=== PATIENT | female | born 1975 | race Caucasian/White ===

== ENCOUNTER → 2022-09-01 13:38 | Outpatient (CLI) | payer BC, SELFPAY ==
--- NOTE | ~2022-09-01 | US_ITS ---
Pelvic ultrasound. Clinical History: Abnormal bleeding Technique: Realtime transabdominal and transvaginal scanning of the pelvis was performed. Color flow Doppler and Doppler spectral analysis were performed. Findings: The uterus is anteverted. The endometrial stripe has a thickness of 11 mm. No focal mass i s identified. The right ovary measures 2.6 x 3.4 x 2.0 cm. No significant right ovarian or adnexal mass is seen. The left ovary measures 3.6 x 2.2 x 2.3 cm. No significant left ovarian or adnexal mass is seen. Vascular flow present in both ovaries on Doppler spectral analysis. There is no evidence of free fluid in the cul de sac. Impression: Unremarkable pelvic ultrasound. No evidence for torsion. Reviewed, dictated and finalized at [facility]. ENDOSCOPY Impression: Unremarkable pelvic ultrasound. No evidence for torsion.
== END ==
PROVIDERS: PCP Family Medicine; Visit Provider Obstetrics & Gynecology Gynecologic Oncology
DX: Z12.31 Encounter for screening mammogram for malignant neoplasm of breast (principal); N93.9 Abnormal uterine and vaginal bleeding, unspecified
CPT/HCPCS: 76830